=== PATIENT | male | born 1970 | race Caucasian/White ===

== ENCOUNTER 2017-10-10 13:07 | Emergency (ER) | payer BC ==
[~2017-10-10] VITALS: Ht 198.1 cm; Wt 94.9 kg
[2017-10-10] MEDS ORDERED: HYDROcodone/acetaminophen 10/325mg tab PO ONE (14:30)
[2017-10-10] MEDS ORDERED: metFORMIN 500mg tablet PO ONE (14:30)
[2017-10-10] MEDS ORDERED: PRED20TA PO (14:35)
[2017-10-10] MEDS ORDERED: METF500T4 PO (14:35)
[2017-10-10] MEDS ORDERED: GLIM4TAB79 PO (14:35)
[2017-10-10] MEDS ORDERED: HYDR-565 PO (14:35)
[2017-10-10 14:52] VITALS: BP 129/110
== END 2017-10-10 14:54 | disposition home or self-care (01) ==
LOC: ER 13:08
DX: M54.31 Sciatica, right side (principal); E11.9 Type 2 diabetes mellitus without complications; Z79.84 Long term (current) use of oral hypoglycemic drugs
CPT/HCPCS: 82948; 99284